=== PATIENT | female | born 1990 | race Caucasian/White ===

== ENCOUNTER 2023-11-02 16:34 | Inpatient (IN) | payer BC ==
[2023-11-02] VITALS (20 sets, daily range): BP systolic 85–138; BP diastolic 52–73; PULSE 81–97; TEMP 98.4
[~2023-11-02] VITALS: Ht 167.6 cm; Wt 69.1 kg
--- NOTE | 2023-11-02 16:45 | NUR ---
Pt arrived on unit ambulatory and with concerns for contractions since this morning and worsening in frequency and strength this afternoon. Pt denies any leaking of fluid or vaginal bleeding and reports normal movement. EFM and toco monitors started. Vital signs WNL. SVE done by this RN 3-. Dr. Major notified.
[2023-11-02] MEDS ORDERED: ZOVIRAX400 MG (18:26)
[2023-11-02] MEDS ORDERED: PRENATAL (18:26)
[2023-11-02 18:57] LABS: BASO % 0.2 % (0.0-2.0); EOS % 0.2 % (0.0-4.0); GRAN # 10.4 K/mm3 (1.4-6.5); GRAN % 82.1 % (42.2-75.2); HEMATOCRIT 37.3 % (37.0-47.0); HEMOGLOBIN 13.3 g/dl (12.5-16.0); LYMPH # 1.3 K/mm3 (1.2-3.4); LYMPH % 10.4 % (20.0-51.0); MEAN CELL VOLUME 89 fl (80.0-100.0); MEAN CORPUSCULAR HEMOGLOBIN 32 pg (27-31); MEAN CORPUSCULAR HGB CONC 36 g/dl (33.0-37.0); MEAN PLATELET VOLUME 9.9 fl (7.4-10.4); MONO # 0.8 K/mm3 (0.1-0.6); MONO % 6.3 % (1.7-9.3); PLATELET COUNT 217 K/mm3 (130-400); REDCELL DISTRIBUTION WIDTH-CV 13.4 % (11.5-14.5)
--- NOTE | 2023-11-02 19:20 | NUR ---
PT REQUESTS EPIDURAL, NOTIFIED CHIKI CURRY AT 1855. 1909: CHIKI CURRY ON UNIT. PT TO THE BATHROOM, UPON RETURN PATIENT SAT UP AT BEDSIDE AND POSITIONED FOR EPIDURAL PREP. 1919: SINGLE SHOT ADMINISTERED PER CHIKI CURRY. PT TOLERATED PROCEDURE VERY WELL. REPOSITIONED PATIENT TO WEDGE LEFT. NO CONCERNS REGARDING THIS PATIENT AT THE PRESENT TIME.
[2023-11-03] VITALS (36 sets, daily range): BP systolic 94–147; BP diastolic 53–686; PULSE 73–123; TEMP 97.8–98.6
--- NOTE | 2023-11-03 04:35 | NUR ---
PT SVE COMPLETE AT 0210. HARRELL REMOVED, AND PATIENT BEGAN PUSHING AT THIS TIME. 0336: NOTIFIED PROVIDER ABOUT NARROW PELVIS, AND INFANT HEAD NOT MOVING WITH MAXIMUM EFFORT PUSHING. REQUESTED HE COME TO THE BEDSIDE TO ASSESS. 0342: AT BEDSIDE PUSHING WITH THE PATIENT. AGREES REGARDING NARROW PELVIS. GIVES THE PATIENT 30 MINUTES TO CONTINUE PUSHING AND THEN WILL DISCUSS FURTHER OPTIONS. PT CONTINUES PUSHING WITH THIS RN. 0419: RETURNS TO BEDSIDE TO ASSESS DECENT. DR. ERICKSON EDUCATES PT AND SPOUSE OF RISKS OF VACUUM VS. . PT AND SPOUSE REQUEST TIME TO THINK ABOUT THEIR OPTIONS. INFORMS THEM THAT EVEN IF HE ATTEMPTS THE VACUUM, THE INFANT STILL MAY NOT BE ABLE TO COME OUT. PT VERBALIZED UNDERSTANDING AND ARE GIVEN SOME TIME TO THINK ABOUT THEIR OPTIONS. 0427: PT'S SPOUSE COMES TO THE DOORWAY TO ASK FOR THIS RN. AND THIS RN AT BEDSIDE THE PATIENT AGREES TO CONTINUE WITH A PRIMARY DUE TO ARREST OF DECENT. 0430: PT CLIPPED AND WASHED BY THIS RN. HARRELL REPLACED BY ANDRE RANKIN. 0435: PT TO OR VIA BED.
--- NOTE | 2023-11-03 09:39 | NUR ---
Initial visit; Patient (Indisposed), Father greeted and thanked her for offering congratulations and Blessings for the of their son. thanked Family for choosing [facility].
[2023-11-03 17:53] LABS: TRICYCLIC ANTIDEPRESS URINE NEGATIVE
[2023-11-04 07:23] LABS: HEMOGLOBIN 12.3 g/dl (12.5-16.0)
[2023-11-04 07:24] LABS: HEMATOCRIT 34.7 % (37.0-47.0)
[2023-11-04 07:30] VITALS: BP 112/71; PULSE 88; TEMP 97.9
--- NOTE | 2023-11-04 15:28 | NUR ---
SW obtained referral for assessment for for consult for identified risl of presence of illegal drugs. SW reviewed medical record labs with postive oxy observed. SW consulted with nursing staff Anelise to confirm that postive screen was due to medication provided after was born. born on 11/03/2024 @ 456, medication provided after was boran at 5:22pm which produced positive screen. No report filed due to medication induced.
[2023-11-04 16:00] VITALS: BP 112/68; PULSE 92; TEMP 97.9
[2023-11-04 18:44] VITALS: BP 110/78; PULSE 82; TEMP 98.5
[2023-11-05 06:15] VITALS: BP 103/60; PULSE 75; TEMP 98.5
[2023-11-05] MEDS ORDERED: IBU600 MG PO ×3 (09:43→13:02)
[2023-11-05] MEDS ORDERED: TYLENOL 500MG500 MG PO ×3 (09:44→13:02)
[2023-11-05] MEDS ORDERED: ROXICODONE 55 MG/TAB PO ×3 (09:44→13:02)
== END 2023-11-05 14:51 | disposition home or self-care (01) | DRG 787 ==
LOC: LDRO 16:34 → LDR 18:19 → OB 18:19
PROVIDERS: Pediatrics Pediatric Emergency Medicine; ADMIT Obstetrics & Gynecology
PROC: 10D00Z1 Extraction of Products of Conception, Low, Open Approach (ICD-10-PCS; principal; 2023-11-03)
DX: O99.344 Other mental disorders complicating childbirth (principal); O98.32 Other infections with a predominantly sexual mode of transmission complicating childbirth; F32.A Depression, unspecified; Z3A.39 39 weeks gestation of pregnancy; Z37.0 Single live birth; F15.90 Other stimulant use, unspecified, uncomplicated; A60.09 Herpesviral infection of other urogenital tract; O62.1 Secondary uterine inertia; O33.9 Maternal care for disproportion, unspecified; Z90.49 Acquired absence of other specified parts of digestive tract; Z23 Encounter for immunization
CPT/HCPCS: J0665; J0690; J1885; J2175; J2371; J2405; J2590; J2795; J7120

== ENCOUNTER → 2023-11-16 | Outpatient (CLI) | payer BC ==
[~2023-11-16] MED LIST: IBU600 MG PO; PRENATAL; ROXICODONE 55 MG/TAB PO; TYLENOL 500MG500 MG PO; ZOVIRAX400 MG
--- NOTE | 2023-11-16 13:53 | NUR ---
Pt, Analy Almendarez, presents to walk-in clinic with 13 day old baby boy, Abraham Park. They are being evaluated because Abraham was re-admitted to the hospital for jaundice and > 10% wt loss at 6 days of age. Abraham was born on [birth year] and weighed 8# 5.3oz (3780 gms). He was seen at [facility] on 11/09/23 and weighed 7#3oz. This is his lowest known weight and he was re-admitted to the hospital on this date. This LC worked with the family on 11/10/23 with pre and post feed weights. Abraham demonstrated a very poor transfer, only 3ml, even with SNS. Discharge feeding plan from the from the hospital on 11/10/23 was to offer the breast, supplement 90ml EBM/formula q 3 hours, and for Analy to pump. Abraham was seen on 11/13/23 at [facility] and reportedly weighed 8# 0oz. Today Abraham weighs 8# 5.2oz (3778 gms). Pt continues to follow the feeding plan described above. Pt able to latch Abraham but allows a shallow latch. LC reminds pt to help Abraham get the areola into his mouth for a more effective latch. Abraham is allowed 10-15 minutes on each breast. His suck effort is very intermittent and during the first few minutes this LC observed, Abraham had sesveral suckles before getting a swallow, and some bursts of suck that did not get a swallow. After Abraham has a gain of 14 gms (0.6oz) Pt asks to work with SNS, EBM in bottle with 5 fr. feeding tube into it like a straw. Abraham starts drinking the supplement with frequent swallows noted. After with the SNS Abraham had an additional gain of 70 gms, of which 58 was from the bottle per pre and post feed weight. This reflects about 12 more ml from the breast during SNS. LC does suck evaluation with a gloved finger and determines that Abraham has a good quality latch and suck on the finger. Pt states when she pumps she is finally seeing sprays so she may have a bit of a let-down issue. Anticipate improvement as she finds confidence is . Pt states she fed Abraham 40-50ml EBM and pumped 90ml about 1 hour prior to this consult so timing is not in our favor to evaluate milk transfer. POC: continue current feeding plan, using SNS as able, otherwise continue supplement by bottle, and pumping as she has been. F/u: one week at walk-in clinic. Questions invited and answered.
== END ==
LOC: LAC 11-15 05:31
DX: Z39.1 Encounter for care and examination of lactating mother (principal); Z71.89 Other specified counseling